=== PATIENT | male | born 1970 | race African-American/Black ===

== ENCOUNTER 2016-10-15 13:34 | Emergency (ER) | payer OTHER ==
[~2016-10-15] VITALS: Ht 172.7 cm; Wt 76.7 kg
[2016-10-15 13:42] VITALS: BP 128/72
--- NOTE | 2016-10-15 14:20 | NUR ---
AAO PT PLACED ON OF3 ON A CHAIR
--- NOTE | 2016-10-15 14:22 | NUR ---
PATIENT PRESENTS TO ED WITH C/O RIGHT TOE AND PINKY PAIN 10/10; DROP A BRICK ON FOOT LAST FRIDAY HX; DENIES RX; DENIES DENIES N/V/D; SKIN IS PINK/WARM/DRY; AAOX4 WITH EVEN AND STEADY GAIT; LUNGS CLEAR BL; HR EVEN AND REGULAR; PT DENIES ANY FEVER, CP, SOB, OR COUGH AT THIS TIME; PATIENT STATES PAIN OF 10/10 AT THIS TIME; VSS; PATIENT POSITIONED FOR COMFORT; HOB ELEVATED; BEDRAILS UP X2; BED DOWN. ER MD MADE AWARE OF PT STATUS.
[2016-10-15 14:49] VITALS: BP 120/84
== END 2016-10-15 14:49 | disposition home or self-care (01) ==
LOC: MED 13:34
DX: S92.401A Displaced unspecified fracture of right great toe, initial encounter for closed fracture (principal); S92.514A Nondisplaced fracture of proximal phalanx of right lesser toe(s), initial encounter for closed fracture; W20.8XXA Other cause of strike by thrown, projected or falling object, initial encounter; Y93.89 Activity, other specified; Y92.89 Other specified places as the place of occurrence of the external cause; Y99.8 Other external cause status
CPT/HCPCS: 73630; 99284